=== PATIENT | male | born 1955 | race Two or more races ===

== ENCOUNTER 2023-07-22 11:18 | Emergency (ER) | payer MEDICARE, MEDICAID, SELFPAY ==
[2023-07-22 11:28] VITALS: BP 102/61; PULSE 68; RESP 18; TEMP 36.6; O2SAT 98; BMI 24.2
--- NOTE | 2023-07-22 11:47 | PC.NURSE ---
MD in room talking with patient at this time.
--- NOTE | 2023-07-22 12:10 | CT_ITS ---
FINAL REPORT TECHNIQUE: Axial CT images were performed through the head. Coronal reformatted images were submitted. This study was performed with techniques to keep radiation doses as low as reasonably achievable (ALARA). Individualized dose reduction techniques using automated exposure control or adjustment of mA and/or kV according to the patient's size were employed. CLINICAL HISTORY: bilateral blurry vision x months COMPARISON: None FINDINGS: The ventricles are normal in size. There is moderate atrophy. There is no evidence of hemorrhage. There is no mass or edema identified. There is no abnormal extra-axial fluid seen. There is mild mucoperiosteal thickening in both maxillary sinuses. There is new complete opacification of the right mastoid air cells probably related to chronic mastoiditis. There is opacification of the right cell of the sphenoid sinus. There appears to be a prior fracture of the floor of the left orbit, healed. IMPRESSION: Atrophy. 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 Old fracture deformity floor of the left orbit. Reviewed, Interpreted and Dictated by Willard Nieves MD Transcribed by Michelle Kamara Authenticated and [facility]
--- NOTE | 2023-07-22 12:12 | HMH.EDGENADL ---
Discharge Plan Disposition Patient Disposition: Home, Self-Care Condition: Fair Prescriptions Prescriptions: New gabapentin 300 mg capsule 300 mg PO BID 30 Days Qty: 60 0RF insulin glargine [Lantus Solostar U-100 Insulin] 100 unit/mL (3 mL) insulin pen 10 unit SQ HS Qty: 15 0RF Rx Instructions: start on 07/23/23 (DME) pen needle, diabetic 31 gauge x 1/4 needle See Rx Instructions .Route Qty: 100 0RF Rx Instructions: As directed Continued hydrocodone-acetaminophen 7.5-325 mg tablet 1 tab PO Q6H Qty: 120 0RF Activity Restrictions/Add. Instructions Additional Instructions/Restrictions: You were seen in the ED today due to high blood sugar. Prescriptions have been provided for insulin and gabapentin. Please follow-up in clinic next week. Return to the ED if symptoms worsen or if new concerning symptoms arise. Thank you. Clinical Impressions Clinical Impression: Hyperglycemia Instructions Patient Instructions: DI for Diabetes Type 2 Discharge ED Provider: Edy Zavala General Adult HPI General Chief complaint: Recheck/Abnormal Lab/Rx Stated complaint: wants blood pressure checked Time Seen by Provider: 07/22/23 11:47 Mode of Arrival: Ambulatory Source of Information: Patient Limitations: No Limitations Description of Symptoms (Recalled from ER Triage Doc. by RN): Patient reports that he wants his blood pressure checked. History of Present Illness HPI narrative: Patient is a 68-year-old male with history of diabetes who presents for multiple complaints. Patient states for the past 6 months he has felt weak all over and has had pain all over. He states he has been experiencing intermittent lightheadedness. He believes this was a blood pressure issue so he presented today to be seen by a doctor and have his blood pressure checked. He states he was seen by a doctor via telehealth 2 weeks ago but wanted to see a doctor in person. Patient also complains that he has had blurry vision for the past several months in both eyes. States he can see up close but cannot see long distances. States he recently ran out of diabetes medication. Related Data Previous Rx's Medication Instructions Recorded hydrocodone 7.5 mg-acetaminophen 1 tab PO Q6H #120 tabs 02/11/23 325 mg tablet gabapentin 300 mg capsule 300 mg PO BID 30 days #60 caps 07/22/23 insulin glargine 100 unit/mL (3 10 unit (0.1 mL) SQ HS #15 mL 07/22/23 mL) subcutaneous pen (Lantus Solostar U-100 Insulin) pen needle, diabetic 31 gauge x #100 ea 07/22/2304/28 Allergies Allergy/AdvReac Type Severity Reaction Status Date / Time No Known Allergies Allergy Verified 07/22/23 11:32 [facility] Disclaimer: The information contained in this section may have been updated after the patient was seen, as this information can be updated by other users. Medical History (Updated 07/22/23 @ 15:04 by Edy Zavala MD) Neuropathy HTN (hypertension) Diabetes Social History Smoking Status: Unknown if ever smoked alcohol intake: former current occupational status: unemployed Travel in the last 8 weeks: Inside the [place] ROS Obtained: Yes All systems reviewed & no additional complaints except as documented Constitutional Constitutional: Reports body ache and Reports weakness Neurologic Neurologic: Reports weakness Physical Exam General General appearance: alert and in no apparent distress Head Head exam: atraumatic, normocephalic and normal inspection Eye Eye exam: Present normal appearance, PERRL and EOMI ENT ENT exam: Present normal exam, normal oropharynx, mucous membranes moist, TM's normal bilaterally and normal external ear exam Neck Neck exam: Present normal inspection, full ROM and trachea midline; Absent meningismus or lymphadenopathy Chest Chest inspection: Present normal inspection and symmetric chest wall rise; Absent tenderness Respiratory Respiratory exam: Present normal lung sounds bilaterally; Absent respiratory distress Cardiovascular Cardiovascular exam: Present regular rate and normal rhythm; Absent JVD Abdominal Exam Abdominal exam: Present soft and normal bowel sounds; Absent distention, tenderness or guarding Extremities Exam Extremities exam: Present normal inspection, full ROM and normal capillary refill; Absent calf tenderness Back Exam Back exam: Present normal inspection; Absent tenderness Neurological Exam Neurological exam: Present alert and oriented X3 Psychiatric Psychiatric exam: Present normal affect and normal mood Skin Skin exam: Present warm, dry, intact and normal color Lymphatic Lymphatic Findings: no adenopathy Medical Decision Making George Inquiry Pt receiving controlled substance: No George was queried for this patient: No Vital Signs: 07/22/23 11:28 07/22/23 12:30 07/22/23 13:01 Temperature 97.9 F Temperature Source Oral Pulse Rate [Radial] 68 Respiratory Rate 18 Blood Pressure 129/67 106/60 L Blood Pressure [Right Arm] 102/61 L Blood Pressure Mean 106 75 Blood Pressure Mean [Right Arm] 74 Blood Pressure Source [Right Arm] Automatic Cuff Blood Pressure Position [Right Arm] Sitting 02 Sat by Pulse Oximetry 98 Oxygen Delivery Method Room Air 07/22/23 13:31 Temperature Temperature Source Pulse Rate [Radial] Respiratory Rate Blood Pressure 149/87 H Blood Pressure [Right Arm] Blood Pressure Mean 107 Blood Pressure Mean [Right Arm] Blood Pressure Source [Right Arm] Blood Pressure Position [Right Arm] 02 Sat by Pulse Oximetry Oxygen Delivery Method Lab Data Lab Results 07/22/23 12:10: VBG pH 7.31, VBG pCO2 44.1, VBG pO2 31.6, VBG HCO3 21.5 L, VBG Total CO2 22.9 L, VBG O2 Saturation 54.2, VBG Base Excess -4.8 L, VBG Lactic Acid 3.7 H 07/22/23 12:40: WBC 10.2, RBC 3.81 L, Hgb 11.5 L, Hct 35.4 L, MCV 93.0, MCH 30.3, MCHC 32.5, RDW 14.3, Plt Count 210, MPV 9.6, Neut % (Auto) 88.9 H, Lymph % (Auto) 8.4 L, [place] % (Auto) 2.2, Eos % (Auto) 0.1, Baso % (Auto) 0.3, Neut # (Auto) 9.1 H, Lymph # (Auto) 0.9, [place] # (Auto) 0.2, Eos # (Auto) 0.0, Baso # (Auto) 0.0, Total Counted 100, Neutrophils % (Manual) 85 H, Band Neutrophils % 4.0, Lymphocytes % (Manual) 7 L, Monocytes % (Manual) 3, Eosinophils % (Manual) 1, Platelet Estimate Normal, Hypochromasia 1+, Poikilocytosis 1+, Anisocytosis 1+, Sodium 141, Potassium 5.0, Chloride 111 H, Carbon Dioxide 21 L, Anion Gap 14.0, BUN 30 H, Creatinine 1.80 H, Estimated Creat Clear 38, Estimated GFR 38 L, Est GFR ( Amer) 46 L, Glucose 239 H, Hemoglobin A1c 8.4 H, Calcium 9.4, Total Bilirubin 0.4, AST 35, ALT 32, Alkaline Phosphatase 97, Total Protein 7.5, Albumin 4.3, Globulin 3.2, Albumin/Globulin Ratio 1.3 07/22/23 13:20: Urine Color Yellow, Urine Appearance Clear, Urine pH 6.0, Ur Specific [place] >= 1.030, Urine Protein 2+, Urine Glucose (UA) Trace, Urine Ketones Negative, Urine Blood 1+, Urine Nitrate Negative, Urine Bilirubin Negative, Urine Urobilinogen 0.2, Ur Leukocyte Esterase Negative, Urine RBC 3-5, Urine WBC Occasional, Ur Squamous Epith Cells 3-5, Urine Bacteria Trace, Hyaline Casts 5-10 07/22/23 12:40 07/22/23 12:40 Orders (Tests/Meds): ED MEDICATIONS Generic Name Dose Route Start Last Admin Trade Name Freq PRN Reason Stop Dose Admin Sodium Chloride 10 ml 07/22/23 12:43 Sodium Chloride 0.9% 10ml Flush Syringe IV 08/21/23 12:42 NEEDED PRN Maintain IV Site Discontinued Medications Generic Name Dose Route Start Last Admin Trade Name Freq PRN Reason Stop Dose Admin Lactated Ringer's 1,000 mls @ 999 mls/hr 07/22/23 13:04 07/22/23 13:12 Lactated Ringer's 1000 Ml Bag IV 07/22/23 14:04 999 mls/hr .Q1H1M ONE Administration Insulin Glargine 10 unit 07/22/23 14:06 07/22/23 14:29 Insulin Glargine 100 Units/Ml 3ml Flexpen SQ 07/22/23 14:07 10 units ONCE ONE Administration ORDERS Category Date Time Status CT head/brain wo con Stat Cat Scan 07/22/23 12:10 Completed CBC w/Auto Diff [Complete Blood Count Auto Diff] Stat Lab 07/22/23 12:40 Completed CMP [Comprehensive Metabolic Panel] Stat Lab 07/22/23 12:40 Completed Hemoglobin A1C Stat Lab 07/22/23 12:40 Completed Urinalysis and Microscopic Stat Lab 07/22/23 13:20 Completed VBG [Venous Blood Gas] Stat RT 07/22/23 12:10 Completed Medical Decision Narrative: In summary, patient is 68-year-old male with history of diabetes, evaluated in the emergency department today due to generalized weakness, body aches. On arrival, patient is hemodynamically stable with normal vital signs. On examination, patient is overall well-appearing. Differential diagnosis includes but is not limited to metabolic derangement, hyperglycemia, viral infection, intracranial abnormality. Workup initiated including CBC, CMP, VBG, urinalysis, CT head without contrast. Labs independently interpreted by me and significant for creatinine 1.80, lactate 3.7. Imaging independently interpreted by me and significant for CT head showing no bleed, no mass, otherwise no acute findings. On reevaluation, patient is resting comfortably. Patient given 1 L LR bolus, 10 units insulin Lantus. Given his lab abnormalities and poor follow-up, hospitalist was contacted and case discussed. Hospitalist spoke with patient as well. In shared decision-making, we will proceed with treatment for his diabetes on outpatient management and increase in gabapentin for his neuropathy. Patient is agreeable to plan. Prescriptions provided. Patient is appropriate for discharge at this time. Patient counseled on home care, given strict return precautions and agreeable to plan. I considered admitting the patient to the hospital for further stabilization, and in shared decision-making with patient and hospitalist, decided on outpatient follow-up. Critical Care Critical Care Time Critical Care Time: No
[2023-07-22 12:30] VITALS: BP 129/67
[2023-07-22 12:50] LABS: VBG Base Excess -4.8 mmol/L (-2.4-2.3); VBG HCO3 21.5 mmol/L (23-30); VBG Oxygen Saturation 54.2 % (50-70); VBG PCO2 44.1 mmol/L (35-51); VBG PH 7.31 mmol/L (7.31-7.41); VBG PO2 31.6 mmol/L (28-40); VBG Total CO2 22.9 mmol/L (23-27)
[2023-07-22 12:53] LABS: Lactate Venous 3.7 mmol/L (0.4-2.0)
[2023-07-22 12:53] LABS: Basophils % 0.3 % (0.1-2.0); Eosinophils % 0.1 % (0.1-12.0); Hematocrit 35.4 % (42.0-52.0); Hemoglobin 11.5 g/dL (14.1-18.0); Lymphocytes # 0.9 K/mm3 (0.7-4.5); Lymphocytes % 8.4 % (10-50); Mean Corpuscular HGB Conc 32.5 g/dL (31.8-35.4); Mean Corpuscular Hemoglobin 30.3 pg (27.0-31.2); Mean Platelet Volume 9.6 fl (7.4-10.4); Monocytes # 0.2 K/mm3 (0.1-1.0); Monocytes % 2.2 % (1.7-9.3); Neutrophils # 9.1 K/mm3 (1.8-7.8); Neutrophils % 88.9 % (37.0-80.0); Platelet Count 210 K/mm3 (142-424); Red Blood Count 3.81 M/mm3 (4.60-6.20); Red Cell Distribution Width 14.3 % (11.5-17.5); White Blood Count 10.2 K/mm3 (4.8-10.8)
[2023-07-22 12:56] LABS: Chloride 111 mmol/L (98-107); Sodium 141 mmol/L (136-145)
[2023-07-22 12:59] LABS: Alanine Aminotransferase 32 U/L (12-78); Albumin Level 4.3 g/dl (3.5-5.0); Albumin/Globulin Ratio 1.3 (1.1-1.8); Alkaline Phosphatase 97 U/L (38-126); Aspartate Amino Transferase 35 U/L (17-59); Bilirubin,Total 0.4 mg/dl (0.2-1.3); Blood Urea Nitrogen 30 mg/dl (9-20); Carbon Dioxide 21 mmol/L (22.0-30.0); Creatinine Clearance Estimated 38 mL/min (50-200); Estimated Glomerular Filt Rate 38 ml/min (>60); GFR (African American) 46 ML/MIN (>60); Globulin 3.2 g/dL (1.3-3.2); MANUAL DIFFERENTIAL MANUAL DIFFERENTIAL (MANUAL DIFF); Total Protein,Serum 7.5 g/dl (6.3-8.2)
[2023-07-22 13:00] LABS: Calcium 9.4 mg/dl (8.4-10.2); Glucose 239 mg/dl (74-100)
[2023-07-22 13:01] VITALS: BP 106/60
[2023-07-22] MEDS: LACTATED RINGERS 1000ML 1,000 ML 999 ML IV (13:12)
[2023-07-22 13:16] LABS: Hemoglobin A1C 8.4 % (4.0-6.0)
--- NOTE | 2023-07-22 13:21 | PC.NURSE ---
on phone with hospitalist at this time.
[2023-07-22 13:31] VITALS: BP 149/87
[2023-07-22 13:41] LABS: Microscopic, Urine URINE MICROSCOPIC (MICROSCOPIC)
[2023-07-22 13:43] LABS: Appearance,Urine CLEAR (Clear); Bilirubin,Urine Negative (Negative); Blood, Urine 1+ (Negative); Color,Urine YELLOW (Yellow); Glucose,Urine (UA) TRACE (Negative); Ketones,Urine Negative (Negative); Leukocyte Esterase,Urine Negative (Negative); Nitrate,Urine Negative (Negative); Protein,Urine 2+ (Negative); Specific Gravity, Urine >= 1.030 (1.005-1.030); Urobilinogen,Urine 0.2 EU/dl (0.2)
[2023-07-22 13:54] LABS: WBC,Urine Occasional #/hpf (0-3)
[2023-07-22 13:55] LABS: Bacteria,Urine Trace /lpf
--- NOTE | 2023-07-22 14:17 | P.CONS_ITS ---
History of Present Illness *Admission Date: 07/22/23 *Reason for visit:: Generalized weakness *History of present illness: Mr. Harper is a 68-year-old male with history of diabetes, hypertension, neuropathy, hyperlipidemia. He presented to the ER because of just not feeling well. Stated he wanted his blood pressure checked. On evaluation, his blood pressure is within a normal range. States that for the past 6 months he has felt weak all over and generalized pain, along with worse tingling in his feet below the knees. States he has been experiencing some occasional dizziness. Believes that his blood pressure is the issue and wanted to be evaluated. Also complains that he has been having some blurring vision over the past 6 months. Has not had an eye exam in some time. Has been out of his diabetes medications recently. On evaluation, found to have creatinine 1.8, glucose in the mid 200s. A1c 8.4. Medicine was consulted for evaluation and assistance with care. On my discussion, patient appears alert and oriented x 4. Does not appear in any acute distress. Has some minor electrolyte disturbances but no anion gap or DKA. Tolerating good p.o. intake. Receiving 1 L IV fluids in the ER. States he has just general soreness and weakness. Was able to ambulate to the facility however. Denies any nausea, vomiting, diarrhea. No shortness of breath. [facility] Disclaimer: The information contained in this section may have been updated after the patient was seen, as this information can be updated by other users. Medical History (Updated 07/22/23 @ 15:04 by Edy Zavala MD) Neuropathy HTN (hypertension) Diabetes Social History (Updated 07/22/23 @ 15:10 by Edy Zavala MD) Smoking Status: Unknown if ever smoked alcohol intake: former current occupational status: unemployed Travel in the last 8 weeks: [place] the [place] Review of Systems Review of Systems Review of systems (narrative): 14 point review of systems performed, pertinent positives and negatives as per HPI Constitutional Constitutional: Reports weakness *Neurologic Neurologic: Reports weakness Exam Data for Last 24 hours Vital signs and Labs for Last 24 Hours: Temp Pulse Resp BP Pulse Ox O2 Del Method 97.9 F 68 18 106/60 L 98 Room Air 07/22/23 11:28 07/22/23 11:28 07/22/23 11:28 07/22/23 13:01 07/22/23 11:28 07/22/23 11:28 Laboratory Results - last 24 hr 07/22/23 12:10: VBG pH 7.31, VBG pCO2 44.1, VBG pO2 31.6, VBG HCO3 21.5 L, VBG Total CO2 22.9 L, VBG O2 Saturation 54.2, VBG Base Excess -4.8 L, VBG Lactic Acid 3.7 H 07/22/23 12:40: WBC 10.2, RBC 3.81 L, Hgb 11.5 L, Hct 35.4 L, MCV 93.0, MCH 30.3, MCHC 32.5, RDW 14.3, Plt Count 210, MPV 9.6, Neut % (Auto) 88.9 H, Lymph % (Auto) 8.4 L, [place] % (Auto) 2.2, Eos % (Auto) 0.1, Baso % (Auto) 0.3, Neut # (Auto) 9.1 H, Lymph # (Auto) 0.9, [place] # (Auto) 0.2, Eos # (Auto) 0.0, Baso # (Auto) 0.0, Sodium 141, Potassium 5.0, Chloride 111 H, Carbon Dioxide 21 L, Anion Gap 14.0, BUN 30 H, Creatinine 1.80 H, Estimated Creat Clear 38, Estimated GFR 38 L, Est GFR ( Amer) 46 L, Glucose 239 H, Hemoglobin A1c 8.4 H, Calcium 9.4, Total Bilirubin 0.4, AST 35, ALT 32, Alkaline Phosphatase 97, Total Protein 7.5, Albumin 4.3, Globulin 3.2, Albumin/Globulin Ratio 1.3 07/22/23 13:20: Urine Color Yellow, Urine Appearance Clear, Urine pH 6.0, Ur Specific [place] >= 1.030, Urine Protein 2+, Urine Glucose (UA) Trace, Urine Ketones Negative, Urine Blood 1+, Urine Nitrate Negative, Urine Bilirubin Negative, Urine Urobilinogen 0.2, Ur Leukocyte Esterase Negative, Urine RBC 3-5, Urine WBC Occasional, Ur Squamous Epith Cells 3-5, Urine Bacteria Trace, Hyaline Casts 5-10 I & O for Last 24 hours: Intake & Output 07/19/23 07/20/23 07/21/23/29/24 23:59 23:59 23:59 23:59 Weight 68.039 kg Constitutional Constitutional: no acute distress, average body habitus and chronically ill appearing *Routine HEENT Exam Head: Present normocephalic Eye: Present EOMI and PERRL ENT: Present mucous membranes moist *Routine Neck Exam Neck: Present supple; Absent lymphadenopathy *Routine Respiratory Exam Respiratory: Present CTA bilaterally; Absent rhonchi, wheezes or crackles *Routine Cardiovascular Exam Cardiovascular: Present RRR *Routine Abdominal Exam Abdominal: Present soft, normoactive bowel sounds and tenderness (Nonspecific, minimal.); Absent distended *Routine Rectal Exam Patient deferred: visual exam *Routine Exam Patient deferred: penile exam *Routine Extremities Exam Extremities: Absent cyanosis, clubbing or edema *Routine Skin Exam Skin: Present intact and warm; Absent rash *Routine Neurological Exam Neurological: Present alert, oriented X3 and moving all extremities; Absent motor deficit or altered mental status Comments: Decree sensation to touch below the knees, worse in his feet. Routine Psychiatric Exam Psychiatric: Present normal affect Meds Home Medications and Allergies Home Medications Medication Instructions Recorded Confirmed Type hydrocodone 7.5 mg-acetaminophen 1 tab PO Q6H #120 tabs 02/11/23 Rx 325 mg tablet gabapentin 300 mg capsule 300 mg PO BID 30 days #60 caps 07/22/23 Rx insulin glargine 100 unit/mL (3 10 unit (0.1 mL) SQ HS #15 mL 07/22/23 Rx mL) subcutaneous pen (Lantus Solostar U-100 Insulin) pen needle, diabetic 31 gauge x #100 ea 07/22/23 Rx 1/4 New Prescriptions to Start Prescriptions: gabapentin Florian Elizabeth insulin glargine [Lantus Solostar U-100 Insulin] Florian Elizabeth pen needle, diabetic Florian Elizabeth Allergies Allergy/AdvReac Type Severity Reaction Status Date / Time No Known Allergies Allergy Verified 07/22/23 11:32 Results Labs 07/22/23 12:40 07/22/23 12:40 Labs: Abnormal lab results 07/22/23 07/22/23 Range/Units 12:10 12:40 RBC 3.81 L (4.60-6.20) M/mm3 Hgb 11.5 L (14.1-18.0) g/dL Hct 35.4 L (42.0-52.0) % Neut % (Auto) 88.9 H (37.0-80.0) % Lymph % (Auto) 8.4 L (10-50) % Neut # (Auto) 9.1 H (1.8-7.8) K/mm3 VBG HCO3 21.5 L (23-30) mmol/L VBG Total CO2 22.9 L (23-27) mmol/L VBG Base Excess -4.8 L (-2.4-2.3) mmol/L VBG Lactic Acid 3.7 H (0.4-2.0) mmol/L Chloride 111 H (98-107) mmol/L Carbon Dioxide 21 L (22.0-30.0) mmol/L BUN 30 H (9-20) mg/dl Creatinine 1.80 H (0.66-1.25) mg/dl Estimated GFR 38 L (>60) ml/min Est GFR ( Amer) 46 L (>60) ML/MIN Glucose 239 H (74-100) mg/dl Hemoglobin A1c 8.4 H (4.0-6.0) % H & H 07/22/23 Range/Units 12:40 Hgb 11.5 L (14.1-18.0) g/dL Hct 35.4 L (42.0-52.0) % All other labs normal. Assessment and Plan *Assessment and plan (1) Diabetes: Status: Acute Category: Medical Code(s): E11.9 - Type 2 diabetes mellitus without complications (2) HTN (hypertension): Status: Acute Category: Medical Code(s): I10 - Essential (primary) hypertension (3) Neuropathy: Status: Acute Category: Medical Code(s): G62.9 - Polyneuropathy, unspecified (4) Elevated serum creatinine: Status: Acute Category: Medical Code(s): R79.89 - Other specified abnormal findings of blood chemistry (5) Uncontrolled diabetes mellitus: Status: Acute Category: Medical Plan Mr. Turk is a 68-year-old male with diabetes that appears poorly old. Additional he has hypertension, neuropathy. Presented to the ER complaining of generalized fatigue, tingling in his feet, changes in his vision. On, to be medically stable but noted to have some minor abnormalities on labs. Kidney function with creatinine of 1.8, BUN is 30. Concerning for SEBASTIAN versus CKD. Also noted to have uncontrolled diabetes with glucose of approximately 240 and A1c of 8.4. Review of home meds shows that he is on metformin and glipizide only. States he has been on insulin in the past. Receiving 1 L IV fluids in the ER. No focal signs of infection or acute illness. Is tolerating p.o. intake well. No elevated anion gap on labs. After much discussion with the assistance of an civil defense director (Johnathan via [employer] civil defense director service) will make the following adjustments to patient's regimen. -Add insulin glargine 10 units nightly to his diabetes regimen. He will receive his first dose in the ER. Next dose [facility] 07/22 [facility]. Will be sent home with the insulin pen and a few needles to get him through for a few days until his prescription is filled. -I will increase his gabapentin to 300 mg twice daily to assist with his neuropathy. -Case management assisted in my interview. We have reached out to his primary care nurse practitioner who sees him at his [facility]. She will see him within the next week and repeat labs to monitor kidney function and electrolytes. Given his complaint of vision changes and presence of retinopathy clinically, strong correlation with nephropathy and suspect his creatinine is not far from his baseline. We just do not have any previous labs to compare to. As he is making adequate urine and does not appear prerenal with his BUN/creatinine ratio, comfortable with close follow-up and repeat lab work. -Recommend continuing the remainder of his home medications as follows: metformin 1000 mg twice daily, glimepiride 4 mg twice daily, Lipitor 10 mg daily, tamsulosin 0.4 mg nightly. Discussed plan with the ER physician. At this time I think it is safe for patient to be discharged to his [facility] and does not necessitate inpatient admission for further management. Given close follow-up, clinical stability of patient, recommend the patient is stable to discharge back to his [facility] with further management as an outpatient. Thank you for the opportunity to consult and assist in care on this patient.
[2023-07-22 14:24] LABS: Eosinophils % 1 % (0-3); Lymphocytes % 7 % (10-50); Monocytes % 3 % (2-9); Neutrophils % 85 % (42-76); Total Cells Counted 100
[2023-07-22 14:28] LABS: Anisocytosis 1+; Platelet Estimate Normal; Poikilocytosis 1+
[2023-07-22 14:29] LABS: Hypochromasia 1+
[2023-07-22] MEDS: INSULIN GLARGINE 100 UNITS/ML 3ML FLEXPEN 10 UNIT SQ (14:29)
--- NOTE | 2023-07-22 15:27 | PC.NURSE ---
calling [facility] at this time
--- NOTE | 2023-07-22 15:28 | PC.NURSE ---
dakota will call back after talking to sterile processing manager.
--- NOTE | 2023-07-22 15:44 | PC.NURSE ---
Spoke with Carli in Care Management regarding patient's discharge. States she will call Cassie and call us back.
--- NOTE | 2023-07-22 15:46 | PC.NURSE ---
Carli called back and stated someone from [facility] would be here to pick the patient up.
[2023-07-22 16:04] VITALS: BP 140/80; BP 149/87; PULSE 68; PULSE 72; RESP 16; RESP 18; TEMP 36.6; O2SAT 98
[2023-07-22 16:53] LABS: Reflex Lactic Add Lactic Reflex
== END 2023-07-22 16:05 | disposition home or self-care (01) ==
PROVIDERS: Emergency Provider Student in an Organized Health Care Education/Training Program
DX: I10 Essential (primary) hypertension; G62.9 Polyneuropathy, unspecified; R79.89 Other specified abnormal findings of blood chemistry; E11.65 Type 2 diabetes mellitus with hyperglycemia
CPT/HCPCS: 70450; 80053; 81001; 82803; 83036; 85007; 85025; 96361; 96374; 99284